=== PATIENT | female | born 1945 | race Caucasian/White ===

== ENCOUNTER → 2017-01-10 | Outpatient (CLI) | payer MEDICARE, BC ==
[2016-08-12 16:15] VITALS: BP 140/74
[~2017-01-10] MED LIST: ASPI-630 PO; ATOR40TA PO; CA C1TAB28 PO; FISH1200 PO; LEVO100T PO; METO50TA4 PO; MULT-18 PO; ONDA8TAB12 PO; PANT40TA3 PO; RAMI10CA34 PO; TEMA15CA6 PO; onglyza
--- NOTE | 2017-01-10 08:35 | RAD ---
Three-view bilateral knee radiographs 01/10/2017 Clinical history: Bilateral knee chronic pain which is worsening. AP, lateral and oblique digital radiographs of both knees were obtained. Mild to moderate degenerative changes are seen involving all 3 compartments of both knees. These consist of joint compartment narrowing, subchondral sclerosis and associated osteophyte formation. This particularly involves the medial compartments of both knees and the patellofemoral compartment of the left knee. No fracture or dislocation is seen. Scattered atherosclerotic plaque formation is seen involving both popliteal arteries. Impression: Degenerative changes are seen involving both knees as outlined above. No acute osseous abnormality is seen.
== END | disposition home or self-care (01) ==
LOC: DXRADRC 07:46
PROVIDERS: ATTEND Physician Assistant Medical
DX: M17.0 Bilateral primary osteoarthritis of knee (principal); G89.29 Other chronic pain
CPT/HCPCS: 73562

== ENCOUNTER → 2017-05-12 | Outpatient (CLI) | payer MEDICARE, BC ==
[2016-08-12 16:15] VITALS: BP 140/74
--- NOTE | 2017-05-12 16:16 | RAD ---
Ankle-brachial indices. 05/12/2017 Indication: 71-year-old female with left leg pain. History of diabetes and hypertension. Comparison study: None Discussion: Right brachial pressure: 158 mmHg Left brachial pressure: 155 mmHg Right ankle pressure: 166 mm artery Left ankle pressure: 165 mmHg Right ankle brachial index: 1.05 Left ankle brachial index 1.04 Impression: Normal ankle-brachial indices
== END | disposition home or self-care (01) ==
LOC: US 14:47
PROVIDERS: ATTEND Physician Assistant Medical
DX: M79.605 Pain in left leg (principal); E11.9 Type 2 diabetes mellitus without complications; I10 Essential (primary) hypertension
CPT/HCPCS: 93922

== ENCOUNTER → 2017-07-13 | Outpatient (CLI) | payer MEDICARE, BC ==
[2016-08-12 16:15] VITALS: BP 140/74
--- NOTE | 2017-07-13 17:09 | RAD ---
DATE: 07/13/2017 EXAM: DIGITAL SCREEN BILAT W/CAD HISTORY: Routine screening COMPARISON: 06/17/2016 This study was interpreted with the benefit of Computerized Aided Detection (CAD). The breast parenchyma is primarily fatty replaced. Breast parenchyma level density A. FINDINGS: No new or enlarging breast densities are seen. Benign type calcifications are present in both breasts. No suspicious microcalcifications have developed. IMPRESSION: Stable mammograms without evidence of malignancy. BI-RADS CATEGORY: 2 BENIGN FINDING(S) RECOMMENDED FOLLOW-UP: 12M 12 MONTH FOLLOW-UP PQRS compliance statement: Patient information was entered into a reminder system with a target due date for the next mammogram. Mammography is a sensitive method for finding small breast cancers, but it does not detect them all and is not a substitute for careful clinical examination. A negative mammogram does not negate a clinically suspicious finding and should not result in delay in biopsying a clinically suspicious abnormality. "Our facility is accredited by the [employer] Mammography Program."
== END | disposition home or self-care (01) ==
LOC: MAMMO 14:13
PROVIDERS: ATTEND Physician Assistant Medical
DX: Z12.31 Encounter for screening mammogram for malignant neoplasm of breast (principal); Z85.3 Personal history of malignant neoplasm of breast
CPT/HCPCS: G0202; 77067

== ENCOUNTER → 2018-08-06 | Outpatient (CLI) | payer MEDICARE, BC ==
[2016-08-12 16:15] VITALS: BP 140/74
[~2018-08-06] MED LIST changes: +IOHEXOL 300 MG/ML 75 ML VIAL. IV ONE
[2018-08-06 08:38] LABS: CREATININE 0.9 mg/dL (0.6-1.0); GFR 61.2
--- NOTE | 2018-08-06 11:22 | RAD ---
EXAM: Abdomen CT with intravenous contrast. HISTORY: Elevated liver enzymes laboratory values. TECHNIQUE: Computed tomographic images of the abdomen were obtained following the administration of 75 cc Omnipaque 300 intravenous contrast. Multiplanar reformatting was performed. *One or more of the following individualized dose reduction techniques were utilized for this examination: 1. Automated exposure control. 2. Adjustment of the mA and/or kV according to patient size. 3. Use of iterative reconstruction technique. COMPARISON: 07/21/2015. FINDINGS: Evaluation of the lower thorax demonstrates no infiltrate or pleural effusion. There is basilar atelectasis. There is calcification of the mitral valve annulus. There is a tiny hiatal hernia. There is evidence of gastric bypass surgery. There is a tiny left hepatic cyst. There is biliary ductal dilatation, likely due to reservoir effect status post cholecystectomy. The pancreas is unremarkable. There is a granuloma within an otherwise unremarkable spleen. There is a 2.3 cm mass within the left adrenal gland. There is a 1.2 cm nodule within the medial limb of the right adrenal gland, best seen on coronal images. There is a large cyst within the anterior right kidney measuring 8.9 cm. There is a 1 mm calcification along the posterior cyst wall. There is no obstructive uropathy. No abnormally dilated or thickened loop of bowel is seen. There is no retroperitoneal or mesenteric lymphadenopathy. There is multilevel degenerative change throughout the thoracic and lumbar spine. There is mild scoliosis and mild listhesis at multiple levels. There are multiple endplate Schmorl's nodes. There are few small osseous hemangiomas. No suspicious osseous lesion is seen. IMPRESSION: 1. Biliary ductal dilatation. This can be seen with reservoir effect status post cholecystectomy. ERCP or MRCP can be performed if there is laboratory evidence to suggest an obstructing biliary lesion. 2. Tiny hepatic cyst. 3. 2.3 cm left and 1.6 cm right adrenal nodules. The attenuation of these nodules is greater than expected for adenomas. However, the minimal interval change compared to the study dated 07/21/2015 favors benign adenomas. Adrenal protocol CT or MRI can be performed for confirmation if there is clinical concern. 4. Stable right right renal cyst with punctate wall calcification. 5. Postoperative changes involving the stomach and tiny hiatal hernia. Electronically signed by: Cheryl Ruano MD (08/06/2018 11:18 AM) [place] [id number]
== END | disposition home or self-care (01) ==
LOC: RAD 07:58
PROVIDERS: ATTEND Physician Assistant Medical
DX: K83.8 Other specified diseases of biliary tract (principal); M41.86 Other forms of scoliosis, lumbar region; M43.16 Spondylolisthesis, lumbar region; M51.46 Schmorl's nodes, lumbar region; N28.1 Cyst of kidney, acquired; E27.8 Other specified disorders of adrenal gland; Z90.49 Acquired absence of other specified parts of digestive tract; Z98.890 Other specified postprocedural states
CPT/HCPCS: 36415; 74160; 82565; 84520; Q9967